=== PATIENT | female | born 1925 | race Caucasian/White ===

== ENCOUNTER 2016-11-21 10:54 | Outpatient (CLI) | payer MEDICARE ==
[2016-09-14 14:07] VITALS: BP 98/96
== END 2016-11-21 10:55 ==
LOC: POD 10:54
PROVIDERS: ATTEND Podiatrist Public Medicine
DX: B35.1 Tinea unguium (principal); L60.0 Ingrowing nail; M79.674 Pain in right toe(s); M79.675 Pain in left toe(s); L84 Corns and callosities
CPT/HCPCS: 11721; G0463

== ENCOUNTER 2017-02-20 08:46 | Outpatient (CLI) | payer MEDICARE ==
[2016-09-14 14:07] VITALS: BP 98/96
== END 2017-02-20 08:47 ==
LOC: POD 08:46
PROVIDERS: ATTEND Podiatrist Public Medicine
DX: B35.1 Tinea unguium (principal); L60.0 Ingrowing nail; M79.674 Pain in right toe(s); M79.675 Pain in left toe(s)
CPT/HCPCS: 11721; G0463

== ENCOUNTER 2017-04-03 09:05 | Outpatient (CLI) | payer MEDICARE ==
[2016-09-14 14:07] VITALS: BP 98/96
== END 2017-04-03 09:06 ==
LOC: POD 09:05
PROVIDERS: ATTEND Podiatrist Public Medicine
DX: L97.522 Non-pressure chronic ulcer of other part of left foot with fat layer exposed (principal); B35.1 Tinea unguium; L60.0 Ingrowing nail; M79.674 Pain in right toe(s); M79.675 Pain in left toe(s)
CPT/HCPCS: 11721; G0463

== ENCOUNTER 2017-04-08 07:51 | Emergency (ER) | payer MEDICARE ==
--- NOTE | 2017-04-08 08:19 | ED Physician Documentation ---
General Adult - HISTORIAN Historian: patient - HPI Stated Complaint: bleeding vericose vein Chief Complaint: General Adult Further Comments: yes (89 year old female patient presents with complaint of varicose vein bleeding last night. States she would like it looked at.) - ROS CONST: no problems EYES/ENT: none CVS/RESP: none GI/: none MS/SKIN/LYMPH: none NEURO/PSYCH: denies: headache - PAST HX Past History: denies: none Allergies/Adverse Reactions: Allergies Allergy/AdvReac Type Severity Reaction Status Date / Time No Known Drug Allergies Allergy Verified 04/08/17 08:02 Home Medications: Ambulatory Orders Medication Instructions Recorded Aspirin 81 mg PO DAILY u2 09/07/13 - SOCIAL HX Smoking History: non-smoker - FAMILY HX Family History: No - VITAL SIGNS Vital Signs: Vital Signs Temp Pulse Resp BP Pulse Ox 98/96 09/14/16 18:00 - REVIEWED ASSESSMENTS Nursing Assessment Reviewed: Yes Vitals Reviewed: Yes ED Results Lab/Radiology - Orders Orders: ED Orders Category Date Time Status Apply/change dressing NOW Care 04/08/17 08:12 Ordered General Adult Physical Exam - PHYSICAL EXAM GENERAL APPEARANCE: [id number] N EENT: eye inspection normal, MARTA CVS: reg rate & rhythm, heart sounds normal, equal pulses, no murmur, no gallop , PMI nml, no JVD, no friction rub, 24 SKIN: warm/dry, normal color, other (left anterior lower leg with .5 cm open wound, no bleeding. ) EXTREMITIES: non-tender, normal range of motion, no evidence of injury, no edema , J, [employer] NEURO: oriented X3, CN's nml as tested, motor nml, sensation nml, mood/affect nml Discharge Clincal Impression: Varicose vein of leg Referrals: Dawson Chapman MD [Primary Care Provider] - 2 Days Additional Instructions: Leave your dressing on today, remove it this afternoon. If you have additional bleeding, apply a pressure dressing. Follow up with your doctor this week for a wound recheck. Home Medications: Ambulatory Orders Aspirin 81 mg PO DAILY u2 09/07/13 Condition: Stable Disposition: 01 HOME, SELF-CARE Decision to Admit: NO Decision Time: 08:16
[2017-04-08 08:34] VITALS: BP 168/71
== END 2017-04-08 08:12 | disposition home or self-care (01) ==
LOC: ED 07:51
DX: I83.899 Varicose veins of unspecified lower extremity with other complications (principal)

== ENCOUNTER 2017-04-29 16:17 | Outpatient (CLI) | payer MEDICARE | END 2017-04-29 16:30 | LOC: LABRHC 16:17 | PROVIDERS: ATTEND Family Medicine | DX: L82.1 Other seborrheic keratosis (principal) ==

== ENCOUNTER 2017-06-05 10:45 | Outpatient (CLI) | payer MEDICARE | END 2017-06-05 10:46 | LOC: POD 10:45 | PROVIDERS: ATTEND Podiatrist Public Medicine | DX: B35.1 Tinea unguium (principal); L60.0 Ingrowing nail; M79.674 Pain in right toe(s); M79.675 Pain in left toe(s); L97.522 Non-pressure chronic ulcer of other part of left foot with fat layer exposed; L84 Corns and callosities | CPT/HCPCS: 11721; 97597; G0463 ==

== ENCOUNTER 2017-08-07 11:14 | Outpatient (CLI) | payer MEDICARE | END 2017-08-07 11:15 | LOC: POD 11:14 | PROVIDERS: ATTEND Podiatrist Public Medicine | DX: B35.1 Tinea unguium (principal); L60.0 Ingrowing nail; L97.522 Non-pressure chronic ulcer of other part of left foot with fat layer exposed; M79.674 Pain in right toe(s); M79.675 Pain in left toe(s) | CPT/HCPCS: 11721; 97597; G0463 ==

== ENCOUNTER 2017-09-05 11:24 | Outpatient (CLI) | payer MEDICARE ==
[2017-09-05 11:56] LABS: eGFR (African) > 60; eGFR (Non-African) > 60
== END 2017-09-05 11:25 ==
LOC: LABRHC 11:24
PROVIDERS: ATTEND Family Medicine
DX: R73.9 Hyperglycemia, unspecified (principal); I10 Essential (primary) hypertension
CPT/HCPCS: 36415; 80053; 80061; 83036

== ENCOUNTER 2017-09-18 09:27 | Outpatient (CLI) | payer MEDICARE | END 2017-09-18 09:30 | LOC: POD 09:27 | PROVIDERS: ATTEND Podiatrist Public Medicine | DX: L97.522 Non-pressure chronic ulcer of other part of left foot with fat layer exposed (principal); B35.1 Tinea unguium; L84 Corns and callosities; L60.0 Ingrowing nail; M79.674 Pain in right toe(s); M79.675 Pain in left toe(s) | CPT/HCPCS: 11721; G0463 ==